=== PATIENT | male | born 1940 | race Asian ===

== ENCOUNTER 2018-12-26 18:42 | Emergency (ER) | payer OTHER ==
[~2018-12-26] VITALS: Ht 157.5 cm; Wt 63.5 kg
[2018-12-26 19:01] VITALS: BP 163/103
[2018-12-26] MEDS ORDERED: FAMOTIDINE 20 MG TAB PO ONE (19:50)
[2018-12-26] MEDS ORDERED: methylPREDNISolone SS 125 MG/2 ML VIAL IVP ONE (19:50)
[2018-12-26] MEDS ORDERED: diphenhydrAMINE 50 MG/ML VIAL IVP ONE (19:50)
[2018-12-26 22:45] VITALS: BP 131/73
== END 2018-12-26 22:45 | disposition home or self-care (01) ==
LOC: MED 18:42
DX: T78.3XXA Angioneurotic edema, initial encounter (principal); X58.XXXA Exposure to other specified factors, initial encounter
CPT/HCPCS: 82948; 96374; 96375; 99283; J1200; J2930